=== PATIENT | female | born 1955 | race Caucasian/White ===

== ENCOUNTER 2016-08-03 14:22 | Day surgery (SDC) | payer OTHER ==
[2016-08-03] VITALS (14 sets, daily range): BP systolic 118–149; BP diastolic 70–95; PULSE 54–86; RESP 16–21; Ht 162.6 cm; Wt 60.4 kg
[~2016-08-03] VITALS: Ht 162.6 cm; Wt 60.4 kg
[~2016-08-03 14:22] MED LIST: ALPR2TAB PO; GABA100C14 PO; TEMA30CA PO
[2016-08-03] MEDS ORDERED: FENTAnyl 50 MCG/ML VIAL ONE (15:06)
[2016-08-03] MEDS ORDERED: PROPOFOL 20 ML ONE (15:06)
[2016-08-03] MEDS ORDERED: CEFAZOLIN 1 GM INJ ONE (15:06)
[2016-08-03] MEDS ORDERED: MIDAZOLAM 1 MG/ML 2 ML INJ ONE (15:07)
[2016-08-03] MEDS ORDERED: ROPIVACAINE 0.5 % 30 ML VIAL ONE (15:08)
[2016-08-03] MEDS ORDERED: CEFAZOLIN 2 GM/50 ML (PMX) 50 ML IVPB ONE (16:00)
[2016-08-03] MEDS ORDERED: SOD CHLORIDE 0.9% 1,000 ML IV ONE (16:00)
[2016-08-03] MEDS ORDERED: LACTATED RINGER'S 1,000 ML IV* ONE (16:00)
--- NOTE | 2016-08-03 16:09 | HPN ---
Date/Time of Note Date/Time of Note DATE: 08/03/16 TIME: 16:08 Interval H&P Admission Note Pt. seen H&P reviewed: No system changes NANDO NAQVI Aug 03, 2016 16:08
[2016-08-03] MEDS ORDERED: PHENYLephrine (100 MCG/ML) 5ML SYG ONE (16:28)
[2016-08-03] MEDS ORDERED: ACETAMINOPHEN 1000MG/100ML IV 100 ML ONE (16:51)
[2016-08-03] MEDS ORDERED: METOCLOPRAMIDE 10 MG INJ ONE (16:51)
[2016-08-03] MEDS ORDERED: ONDANSETRON 4 MG INJ ONE (16:51)
[2016-08-03] MEDS ORDERED: KETOROLAC 30 MG INJ ONE (16:52)
[2016-08-03] MEDS ORDERED: DEXAMETHASONE 4 MG/ML 1 ML INJ ONE (16:52)
[2016-08-03] MEDS ORDERED: hydrALAzine 20 MG INJ IV PRN (17:00)
[2016-08-03] MEDS ORDERED: FENTAnyl 50 MCG/ML VIAL IV PRN ×3 (17:00)
[2016-08-03] MEDS ORDERED: HYDROmorphONE (0.2 MG/ML) 10ML SYG IV PRN ×2 (17:00)
[2016-08-03] MEDS ORDERED: METOCLOPRAMIDE 10 MG INJ IV PRN (17:00)
[2016-08-03] MEDS ORDERED: DIPHENHYDRAMINE 50 MG INJ IV PRN (17:00)
[2016-08-03] MEDS ORDERED: ONDANSETRON 4 MG INJ IV PRN (17:00)
[2016-08-03] MEDS ORDERED: morphine (1 MG/ML) 10ML SYRINGE IV PRN ×3 (17:00)
[2016-08-03] MEDS ORDERED: EPHEDrine SULFATE 50 MG/5 ML SYG IV PRN (17:00)
[2016-08-03] MEDS ORDERED: MEPERIDINE 25 MG INJ IV PRN (17:00)
[2016-08-03] MEDS ORDERED: LABETALOL HCL 20MG INJ IV PRN (17:00)
[2016-08-03] MEDS: HYDROmorphONE (0.2 MG/ML) 10ML SYG IV PRN ×2 (18:06→18:51)
[2016-08-03] MEDS ORDERED: HYDROCODONE/APAP (5/325) TAB ONE (18:40)
[2016-08-03] MEDS ORDERED: HYDROCODONE/APAP (5/325) TAB PO PRN (19:00)
--- NOTE | 2016-08-03 19:11 | OPR ---
DATE OF OPERATION: 08/03/2016 DATE OF SERVICE: 08/03/2016 SURGEON: Nando Chaney MD ANESTHESIA: Peripheral nerve block plus general. PREOPERATIVE DIAGNOSES: 1. Right distal radius fracture with painful retained hardware. 2. Right trigger thumb. 3. Right wrist volar cyst. 4. 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 POSTOPERATIVE DIAGNOSIS: 1. Right distal radius fracture with painful retained hardware. 2. Right trigger thumb. 3. Right wrist volar cyst. 4. 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 PROCEDURE: 1. Excision of deep hardware from right distal radius. 2. Right trigger thumb release. 3. Excision of cyst and bony osteophyte from right volar wrist. 4. Manipulation under anesthesia of right thumb, index finger, middle finger, ring finger, and smal l finger. OPERATIVE FINDINGS: 1. Profound stiffness of the thumb, index finger middle finger, ring finger, and small finger with ability to fully flex and extend all digits after manipulation under anesthesia, which was gentle an d progressive throughout the case. 2. Volar cyst and osteophyte at the volar distal ulna. 3. Retained hardware, distal radius. 4. Extensive tenosynovitis of right thumb FPL tendon. INDICATION FOR PROCEDURE: This is a 60-year-old female whom I saw previously with a distal radius f racture. She was seen in a delayed fashion when I saw her in clinic, and it took even longer to get her into surgery. Therefore, at the time of surgery with her distal radius fracture, we had to ess entially perform an osteotomy to get her in a more appropriate position. The patient had stiffness preop and postop, was unable to regain additional motion. Despite therapy, she had continued stiffn ess in all digits. She also had formed a cyst at her volar wrist, which was painful to her. She al so had long lasting right thumb pain, which developed into tenosynovitis and trigger thumb. Options were discussed, and patient elected to proceed with removal of hardware, excision of cyst from righ t wrist, trigger thumb release, and manipulation of all digits understanding the risks and benefits. DESCRIPTION OF PROCEDURE: The patient was seen in the preoperative area. All further questions wer e answered. Again, she gave informed consent, understanding the risks and benefits. She was taken to the operative suite and placed in supine position. An axillary block was administered by the [facility] sthesia team at my request for perioperative anesthesia as well as postoperative pain relief. Jacinda dillon was then placed under general anesthesia, and Ancef 2 grams given. Tourniquet placed on the righ t upper extremity, and right upper extremity was prepped with ChloraPrep stick and draped in the usu al sterile fashion. Esmarch bandage was used to exsanguinate the extremity, and tourniquet inflated to 250 mmHg. The previous volar Toribio approach to the distal radius was utilized with sharp dissection carried do wn through skin and subcutaneous tissue. The FCR sheath and sub-sheath were incised, and the FCR an d FPL tendons were retracted ulnarly. The pronator quadratus was elevated off of the distal radius, and the plate was identified. The screws and plate were removed, and any bony prominences were smo othed out with a rongeur. Attention was then turned to the trigger thumb, and a transverse incision over the base of the thumb was utilized, with sharp dissection carried down through skin and the superficial aspects of the de rmis. The deep dermis was spread with scissors in order to protect the underlying sensory nerves. The FPL tendon was identified, and the A1 eleonora was incised. The tendon was inspected both proxima lly and distally, and there was extensive tenosynovitis, and the tendon was freed up from surroundin g scar tissue and tenosynovium. Attention was then turned to the digits, and the thumb, index finger, middle finger, ring finger, an d small finger were all manipulated, both in flexion as well as extension. On the first round of ma nipulation, I was unable to achieve full flexion and extension, but after about 3 to 5 minutes of ge ntle manipulation, I moved on to the next procedure, which was assessing the mass effect within the volar wrist. A separate incision centered over the ulnar aspect of the wrist was utilized directly over the prominence. Sharp dissection was carried down through skin and subcutaneous tissue. The u lnar neurovascular bundle was identified and was retracted towards the midline. The mass was identi fied, and there was a cyst arising from the distal ulna, and also a large volar prominent osteophyte coming from the ulna. The cyst was excised down to the level of the wrist joint, and the prominent osteophyte was also excised. The cyst was completely excised, and the mass effect had been resolve d. Attention was then turned back to the digits, and the thumb, index finger, middle finger, ring finge r, and small finger were all gently manipulated again, and I was able to achieve full flexion and ex tension with a DPC of 0 cm and only a 5-degree flexion contracture at the PIPJ of the index finger. Otherwise, all digits had full range of motion. All wounds were copiously irrigated, and skin clos ed with 4-0 nylon. Xeroform was placed over the wounds followed by sterile gauze, Webril, and a sug ar-tong splint. Tourniquet was deflated after 49 minutes, and patient was awakened from anesthesia. She was taken the postoperative suite in stable condition, and tolerated the procedure well without complication. SPECIMENS: Right wrist hardware, plate, and screws. ESTIMATED BLOOD LOSS: 5 mL. SPONGE, INSTRUMENT, AND NEEDLE COUNTS: Correct. TOURNIQUET TIME: 49 minutes. FLUOROSCOPIC TIME: 0.07 seconds. FLUOROSCOPIC IMAGES: 4 CONDITION ON DISCHARGE: Stable. Dictated By: NANDO FLORES/FIDEL Conf#: [id number] DID#: [id number]
--- NOTE | 2016-08-04 11:54 | RADRPT ---
PROCEDURE: Intraoperative imaging of the right wrist with fluoroscopy. CLINICAL INDICATION: Right wrist pain. Hardware removal. Intraoperative. TECHNIQUE: 2 images of the right wrist were obtained in the operating room with an image intensifi er. No radiologist was in attendance. COMPARISON: 05/03/2016. FINDINGS: Images demonstrate removal of the plate and screws from the distal radius. IMPRESSION: 1. Intraoperative imaging of the right wrist. RPTAT: QQ .Baljinder Yang MD, MD Date Time Electronically viewed and signed by .Baljinder Yang MD, on 08/04/2016 11:54 .R/
== END 2016-08-03 20:00 | disposition home or self-care (01) ==
LOC: SDS 14:22
PROVIDERS: ATTEND Orthopaedic Surgery Hand Surgery
DX: T84.84XA Pain due to internal orthopedic prosthetic devices, implants and grafts, initial encounter (principal); Y83.8 Other surgical procedures as the cause of abnormal reaction of the patient, or of later complication, without mention of misadventure at the time of the procedure; Y92.89 Other specified places as the place of occurrence of the external cause; M65.311 Trigger thumb, right thumb; M25.831 Other specified joint disorders, right wrist
CPT/HCPCS: 20680; 26055; 73110; 88300; J0131; J0690; J1100; J1170; J1200; J1885; J2250; J2370; J2405; J2765; J2795; J3010; Z7512; Z7610; J2175